=== PATIENT | female | born 1945 | race Caucasian/White ===

== ENCOUNTER 2022-07-03 07:48 | Observation (INO) | payer OTHER ==
[2022-06-28 12:54] LABS: Hemoglobin 14.9 g/dL (12.0-15.5); Mean Corpuscular HGB CONC 35.1 g/dL (32.0-36.0); Mean Corpuscular Hemoglobin 35.7 pg (27.0-33.0); Mean Corpuscular Volume 101.7 fl (81.6-98.3); Mean Platelet Volume 10.1 fl (7.4-10.4); Platelet Count 154 10x3/uL (150-450); RBC Distribution Width 11.8 % (11.5-14.5); Red Blood Cell (RBC) Count 4.17 10x6/uL (3.90-5.03); White Blood Cell (WBC) Count 4.9 10x3/uL (3.5-10.5)
[2022-06-29 09:10] VITALS: BMI 32.7
[2022-07-03] MEDS ORDERED: Famotidine/PF 20 mg/2ml Vial ONE (08:44)
[2022-07-03] MEDS ORDERED: Lidocaine 1% w/Epinephrine 1:200K 30 ML VIAL ONE (09:21)
[2022-07-03] MEDS ORDERED: CEFAZOLIN 2 GM VIAL ONE (09:36)
[2022-07-03] MEDS ORDERED: PROPOFOL 20 ML ONE (09:37)
[2022-07-03] MEDS ORDERED: Rocuronium Bromide 10 MG/ML (10ML VIAL) ONE (09:38)
[2022-07-03] MEDS ORDERED: Fentanyl 100 MCG/2 ML VIAL ONE (09:38)
[2022-07-03] MEDS ORDERED: Lidocaine 1% PF 5 ML VIAL ONE (09:38)
[2022-07-03 10:07] LABS: SARS-CoV-2 NAA Rapid Test Not Detected (NotDetected)
[2022-07-03] MEDS ORDERED: Glycopyrrolate 0.2 MG/ML 5 ML SYRINGE ONE (10:33)
[2022-07-03] MEDS ORDERED: Fentanyl 100 MCG/2 ML VIAL SLOW IVP PRN (12:19)
[2022-07-03] MEDS ORDERED: Ondansetron HCl/PF 8 MG in Sodium Chloride 0.9% 50 ML IVPB PRN (12:19)
[2022-07-03] MEDS ORDERED: Acetaminophen 500 MG TAB PO PRN (12:20)
[2022-07-03] MEDS ORDERED: Ibuprofen 600 MG TAB PO PRN (12:22)
[2022-07-03] MEDS: traMADol HCl 50 MG TAB PO PRN (15:30)
[2022-07-03] MEDS ORDERED: Escitalopram Oxalate 10 mg Tablet PO SCH (21:00)
[2022-07-04] MEDS: traMADol HCl 50 MG TAB PO PRN (06:04)
[2022-07-04 07:34] VITALS: BP 152/67; TEMP 97.7
== END 2022-07-04 11:00 | disposition home or self-care (01) ==
LOC: CSHSDC 07:48 → CSHPP 12:14
PROVIDERS: ADMIT Obstetrics & Gynecology; ATTEND Obstetrics & Gynecology
PROC: 0JQC0ZZ Repair Pelvic Region Subcutaneous Tissue and Fascia, Open Approach (ICD-10-PCS; principal; 2022-07-03)
PROC: 0JQC0ZZ Repair Pelvic Region Subcutaneous Tissue and Fascia, Open Approach (ICD-10-PCS; 2022-07-03)
DX: N81.11 Cystocele, midline (principal); N81.6 Rectocele; N81.89 Other female genital prolapse; Z20.822 Contact with and (suspected) exposure to COVID-19; Z90.710 Acquired absence of both cervix and uterus
CPT/HCPCS: 57260; 85027; 86850; 86900; 86901; U0002; J2704; J3010; S0028